=== PATIENT | male | born 1965 | race African-American/Black ===

== ENCOUNTER 2016-12-06 05:41 | Emergency (ER) | payer SELFPAY ==
[~2016-12-06] VITALS: Ht 190.5 cm; Wt 81.8 kg
[~2016-12-06 05:41] MED LIST: NO HOME MEDS
[2016-12-06 07:31] VITALS: BP 193/107
== END 2016-12-06 07:55 | disposition home or self-care (01) ==
LOC: ER 05:41
DX: B35.4 Tinea corporis (principal); I10 Essential (primary) hypertension; F17.210 Nicotine dependence, cigarettes, uncomplicated
CPT/HCPCS: 99282

== ENCOUNTER 2016-12-09 03:01 | Emergency (ER) | payer SELFPAY ==
[~2016-12-09] VITALS: Ht 190.5 cm; Wt 83.0 kg
[2016-12-09 08:43] VITALS: BP 158/91
== END 2016-12-09 08:44 | disposition home or self-care (01) ==
LOC: ER 03:01
DX: D17.1 Benign lipomatous neoplasm of skin and subcutaneous tissue of trunk (principal); I10 Essential (primary) hypertension; F17.200 Nicotine dependence, unspecified, uncomplicated
CPT/HCPCS: 71010; 99283

== ENCOUNTER 2017-01-17 03:55 | Emergency (ER) | payer SELFPAY ==
[~2017-01-17] VITALS: Ht 185.4 cm; Wt 84.0 kg
[2017-01-17 07:23] LABS: BASOPHILS % 1.3 % (0.0-2.0); EOSINOPHILS % 1.1 % (0.0-5.0); HEMATOCRIT. 39.6 % (42.0-52.0); HEMOGLOBIN. 13.4 g/dL (14.0-18.0); LYMPHOCYTES % 54.3 % (20.0-50.0); MEAN CORPUSCULAR HEMOGLOBIN 30.1 pg (28.0-32.0); MEAN CORPUSCULAR VOLUME 89.1 fL (80.0-94.0); MEAN PLATELET VOLUME 7.4 fl (7.4-10.4); MONOCYTES % 8.9 % (2.0-8.0); NEUTROPHILS % 34.4 % (40.0-76.0); PLATELET 180 x1000/uL (130-400); RED BLOOD CELL COUNT 4.44 mill/uL (4.7-6.1); RED CELL DISTRIBUTION WIDTH 13.4 % (11.6-14.6)
[2017-01-17 07:28] LABS: CHLORIDE 106 mEq/L (98-107)
[2017-01-17 07:31] LABS: CARBON DIOXIDE 29 mEq/L (21-32)
[2017-01-17 08:21] VITALS: BP 139/83
== END 2017-01-17 08:21 | disposition home or self-care (01) ==
LOC: ER 05:18
DX: R60.9 Edema, unspecified (principal); I10 Essential (primary) hypertension; F17.200 Nicotine dependence, unspecified, uncomplicated
CPT/HCPCS: 36415; 80048; 85025; 99284

== ENCOUNTER 2023-04-12 07:56 | Emergency (ER) | payer MEDICAID, OTHER ==
[~2023-04-12] VITALS: Ht 182.9 cm; Wt 81.0 kg
[~2023-04-12 07:56] MED LIST changes: +GABA-533 PO
[2023-04-12 08:02] VITALS: O2SAT 100
[2023-04-12] MEDS ORDERED: ACETAMINOPHEN 325MG TABLET PO STA (08:14)
[2023-04-12 08:33] LABS: BASOPHILS % 1.1 % (0.0-2.0); EOSINOPHILS % 1.3 % (0.0-5.0); HEMATOCRIT. 39.1 % (42.0-52.0); HEMOGLOBIN. 13.4 g/dL (14.0-18.0); LYMPHOCYTES % 49.3 % (20.0-50.0); MEAN CORPUSCULAR HEMOGLOBIN 29.3 pg (28.0-32.0); MEAN CORPUSCULAR HGB CONC 34.2 g/dL (31.0-37.0); MEAN CORPUSCULAR VOLUME 85.7 fL (80.0-94.0); MEAN PLATELET VOLUME 7.4 fl (7.4-10.4); MONOCYTES % 10.9 % (2.0-8.0); NEUTROPHILS % 37.4 % (40.0-76.0); PLATELET 218 x1000/uL (130-400); RED BLOOD CELL COUNT 4.56 mill/uL (4.7-6.1); RED CELL DISTRIBUTION WIDTH 13.3 % (11.6-14.6); WHITE BLOOD COUNT 3.5 x1000/uL (4.5-11.0)
[2023-04-12 08:41] LABS: CHLORIDE 106 mEq/L (98-107); INDEX HEMOLYSI 1 (1-3); INDEX ICTERIC 1 (1-4); INDEX LIPEMIC 1 (1-3); POTASSIUM 3.8 mEq/L (3.5-5.1); SODIUM 136 mEq/L (136-145)
[2023-04-12 08:50] LABS: ALANINE AMINOTRANSFERASE 23 IU/L (13-61); ALBUMIN 4.1 g/dL (3.4-5.0); ASPARTATE AMINOTRANSFERASE 16 IU/L (15-37); BILIRUBIN TOTAL 0.8 mg/dL (0.1-1.0); CALCIUM 9.3 mg/dL (8.5-10.1); CARBON DIOXIDE 30 mEq/L (21-32); GLUCOSE 81 mg/dL (70-105); PROTEIN TOTAL 8.2 g/dL (6.0-8.3); UREA NITROGEN BLOOD 14 mg/dL (7-21)
[2023-04-12 10:55] LABS: CLARITY URINE CLEAR (CLEAR); COLOR URINE YELLOW (YELLOW); GLUCOSE URINE NEGATIVE (NEGATIVE); KETONES URINE NEGATIVE (NEGATIVE); LEUKOCYTE ESTERASE URINE NEGATIVE (NEGATIVE); NITRITE URINE NEGATIVE (NEGATIVE); OCCULT BLOOD URINE NEGATIVE (NEGATIVE); PROTEIN URINE NEGATIVE (NEGATIVE); SPECIFIC GRAVITY URINE 1.009 (1.005-1.030); UROBILINOGEN URINE 0.2 E.U./dL (0.2-1.0)
[2023-04-12] MEDS ORDERED: ACETAMINOPHEN 325MG TABLET PO NR (15:15)
[2023-04-12] MEDS ORDERED: IOHEXOL-300 100 ML BOTTLE ONE ×2 (16:19→21:40)
[2023-04-12 17:04] VITALS: BP 138/77; PULSE 70; RESP 20; TEMP 98.9
== END 2023-04-12 17:04 | disposition home or self-care (01) ==
LOC: ER 07:56
DX: R10.31 Right lower quadrant pain (principal); M79.89 Other specified soft tissue disorders; I25.2 Old myocardial infarction; I10 Essential (primary) hypertension
CPT/HCPCS: 80053; 81003; 85025; 36415; 71045; 74177; 93970; 99285; Q9967; Z7610 ×3

== ENCOUNTER 2024-05-22 08:20 | Emergency (ER) | payer MEDICAID ==
[~2024-05-22] VITALS: Ht 188 cm; Wt 83.5 kg
[~2024-05-22 08:20] MED LIST changes: -GABA-533 PO; +GABA-534 PO
[2024-05-22 08:26] VITALS: O2SAT 100
[2024-05-22 08:33] VITALS: TEMP 98.3; O2SAT 97
[2024-05-22 09:07] VITALS: BP 167/104; PULSE 60; RESP 16
[2024-05-22] MEDS: KETOROLAC 30MG/ML VIAL IM ONE (09:07)
[2024-05-22 09:26] LABS: CLARITY URINE CLEAR (CLEAR); COLOR URINE YELLOW (YELLOW); GLUCOSE URINE NEGATIVE (NEGATIVE); KETONES URINE NEGATIVE (NEGATIVE); LEUKOCYTE ESTERASE URINE NEGATIVE (NEGATIVE); NITRITE URINE NEGATIVE (NEGATIVE); OCCULT BLOOD URINE NEGATIVE (NEGATIVE); PROTEIN URINE NEGATIVE (NEGATIVE); SPECIFIC GRAVITY URINE 1.019 (1.005-1.030)
[2024-05-22 09:33] LABS: EOSINOPHILS % 1.4 % (0.0-5.0); HEMATOCRIT. 41.2 % (42.0-52.0); HEMOGLOBIN. 13.9 g/dL (14.0-18.0); LYMPHOCYTES % 44.3 % (20.0-50.0); MEAN CORPUSCULAR HGB CONC 33.8 g/dL (31.0-37.0); MEAN CORPUSCULAR VOLUME 88.7 fL (80.0-94.0); MEAN PLATELET VOLUME 7.8 fl (7.4-10.4); MONOCYTES % 10.6 % (2.0-8.0); NEUTROPHILS % 42.7 % (40.0-76.0); PLATELET 220 x1000/uL (130-400); RED BLOOD CELL COUNT 4.64 mill/uL (4.7-6.1); RED CELL DISTRIBUTION WIDTH 13.5 % (11.6-14.6); WHITE BLOOD COUNT 3.5 x1000/uL (4.5-11.0)
[2024-05-22 09:40] LABS: CHLORIDE 105 mEq/L (98-107); POTASSIUM 3.8 mEq/L (3.5-5.1); SODIUM 139 mEq/L (136-145)
[2024-05-22 09:42] LABS: CARBON DIOXIDE 31 mEq/L (21-32)
[2024-05-22 09:43] LABS: CALCIUM 9.6 mg/dL (8.7-10.4)
[2024-05-22 09:47] LABS: CREATININE 1.2 mg/dL (0.6-1.3)
[2024-05-22 09:48] LABS: GLUCOSE 85 mg/dL (70-105); UREA NITROGEN BLOOD 15 mg/dL (9-23)
[2024-05-22 09:49] LABS: ALANINE AMINOTRANSFERASE 15 IU/L (10-49); ALBUMIN 4.6 g/dL (3.2-4.8); ASPARTATE AMINOTRANSFERASE 20 IU/L (<34)
[2024-05-22 09:50] LABS: BILIRUBIN DIRECT 0.2 mg/dL (<=3.0); BILIRUBIN TOTAL 0.7 mg/dL (0.1-1.0); PROTEIN TOTAL 7.7 g/dL (6.0-8.3)
[2024-05-22] MEDS ORDERED: POLY17PO3 MT (10:57)
[2024-05-22] MEDS ORDERED: IBUP-2029 MT (11:10)
== END 2024-05-22 11:27 | disposition home or self-care (01) ==
LOC: ER 08:20
DX: K40.90 Unilateral inguinal hernia, without obstruction or gangrene, not specified as recurrent (principal); K59.00 Constipation, unspecified; I10 Essential (primary) hypertension; Z98.890 Other specified postprocedural states; Z79.899 Other long term (current) drug therapy
CPT/HCPCS: 99285; 74176; 80076; 80048; 81003; 83690; 85025; 36415; 96372; J1885

== ENCOUNTER 2024-07-17 08:59 | Emergency (ER) | payer MEDICAID, OTHER ==
[~2024-07-17] VITALS: Ht 185.4 cm; Wt 83.0 kg
[~2024-07-17 08:59] MED LIST changes: +IBUP-2029 MT; +POLY17PO3 MT
[2024-07-17 09:02] VITALS: BP 174/105; RESP 16; TEMP 98.6; O2SAT 100
[2024-07-17 09:03] VITALS: PULSE 77; O2SAT 100
[2024-07-17 10:30] LABS: BASOPHILS % 0.8 % (0.0-2.0); EOSINOPHILS % 1.2 % (0.0-5.0); HEMATOCRIT. 46.1 % (42.0-52.0); HEMOGLOBIN. 15.1 g/dL (14.0-18.0); LYMPHOCYTES % 48.8 % (20.0-50.0); MEAN CORPUSCULAR HEMOGLOBIN 29.7 pg (28.0-32.0); MEAN CORPUSCULAR HGB CONC 32.7 g/dL (31.0-37.0); MEAN CORPUSCULAR VOLUME 90.9 fL (80.0-94.0); MEAN PLATELET VOLUME 8.2 fl (7.4-10.4); MONOCYTES % 11.6 % (2.0-8.0); NEUTROPHILS % 37.6 % (40.0-76.0); PLATELET 203 x1000/uL (130-400); RED BLOOD CELL COUNT 5.08 mill/uL (4.7-6.1); RED CELL DISTRIBUTION WIDTH 13.5 % (11.6-14.6); WHITE BLOOD COUNT 3.9 x1000/uL (4.5-11.0)
[2024-07-17 10:41] LABS: CHLORIDE 105 mEq/L (98-107); SODIUM 139 mEq/L (136-145)
[2024-07-17 10:42] LABS: CARBON DIOXIDE 26 mEq/L (21-32)
[2024-07-17 10:43] LABS: CALCIUM 9.6 mg/dL (8.7-10.4)
[2024-07-17 10:47] LABS: CREATININE 1.1 mg/dL (0.6-1.3); GLUCOSE 67 mg/dL (70-105)
[2024-07-17 10:48] LABS: UREA NITROGEN BLOOD 13 mg/dL (9-23)
[2024-07-17 10:49] LABS: ALANINE AMINOTRANSFERASE 22 IU/L (10-49); ALBUMIN 4.7 g/dL (3.2-4.8); ASPARTATE AMINOTRANSFERASE 26 IU/L (<34)
[2024-07-17 10:50] LABS: BILIRUBIN TOTAL 0.9 mg/dL (0.1-1.0); PROTEIN TOTAL 7.8 g/dL (6.0-8.3)
[2024-07-17] MEDS ORDERED: OCUFLX EACHEYE (12:12)
== END 2024-07-17 12:40 | disposition home or self-care (01) ==
LOC: ER 08:59
DX: H10.9 Unspecified conjunctivitis (principal); R20.8 Other disturbances of skin sensation; I10 Essential (primary) hypertension; I51.9 Heart disease, unspecified
CPT/HCPCS: 80053; 85025; 36415; 99283; Z7610

== ENCOUNTER 2024-09-13 08:08 | Emergency (ER) | payer MEDICAID ==
[~2024-09-13] VITALS: Ht 182.9 cm; Wt 85.0 kg
[~2024-09-13 08:08] MED LIST changes: +OCUFLX EACHEYE
[2024-09-13 08:28] VITALS: O2SAT 100
[2024-09-13 09:11] LABS: BASOPHILS % 2.4 % (0.0-2.0); HEMATOCRIT. 39.8 % (42.0-52.0); HEMOGLOBIN. 13.4 g/dL (14.0-18.0); LYMPHOCYTES % 44.3 % (20.0-50.0); MEAN CORPUSCULAR HEMOGLOBIN 30.1 pg (28.0-32.0); MEAN CORPUSCULAR HGB CONC 33.6 g/dL (31.0-37.0); MEAN CORPUSCULAR VOLUME 89.4 fL (80.0-94.0); MEAN PLATELET VOLUME 7.8 fl (7.4-10.4); MONOCYTES % 11.5 % (2.0-8.0); NEUTROPHILS % 40.8 % (40.0-76.0); PLATELET 214 x1000/uL (130-400); RED BLOOD CELL COUNT 4.46 mill/uL (4.7-6.1); RED CELL DISTRIBUTION WIDTH 13.5 % (11.6-14.6); WHITE BLOOD COUNT 3.2 x1000/uL (4.5-11.0)
[2024-09-13 09:13] LABS: CHLORIDE 106 mEq/L (98-107); POTASSIUM 4.7 mEq/L (3.5-5.1); SODIUM 139 mEq/L (136-145)
[2024-09-13 09:14] LABS: CARBON DIOXIDE 27 mEq/L (21-32)
[2024-09-13 09:15] LABS: CALCIUM 9.6 mg/dL (8.7-10.4)
[2024-09-13 09:19] LABS: CREATININE 1.2 mg/dL (0.6-1.3); GLUCOSE 94 mg/dL (70-105)
[2024-09-13 09:20] LABS: UREA NITROGEN BLOOD 12 mg/dL (9-23)
[2024-09-13 09:21] LABS: ALANINE AMINOTRANSFERASE 17 IU/L (10-49); ALBUMIN 4.4 g/dL (3.2-4.8); ASPARTATE AMINOTRANSFERASE 19 IU/L (<34)
[2024-09-13 09:22] LABS: BILIRUBIN DIRECT 0.2 mg/dL (<=3.0); BILIRUBIN TOTAL 0.7 mg/dL (0.1-1.0); PROTEIN TOTAL 7.5 g/dL (6.0-8.3)
[2024-09-13] MEDS ORDERED: MAGNESIUM/ALUMINUM HYDROXIDE/SIMETHICONE 30ML UDC PO STA (10:49)
[2024-09-13] MEDS ORDERED: FAMOTIDINE 20MG TABLET PO ONE (11:00)
[2024-09-13 11:09] LABS: CLARITY URINE CLEAR (CLEAR); COLOR URINE YELLOW (YELLOW); GLUCOSE URINE NEGATIVE (NEGATIVE); KETONES URINE NEGATIVE (NEGATIVE); LEUKOCYTE ESTERASE URINE NEGATIVE (NEGATIVE); NITRITE URINE NEGATIVE (NEGATIVE); OCCULT BLOOD URINE NEGATIVE (NEGATIVE); PH URINE 7.5 (4.5-8.0); PROTEIN URINE NEGATIVE (NEGATIVE)
[2024-09-13] MEDS ORDERED: FAMO-135 MT (12:15)
[2024-09-13] MEDS ORDERED: MAG355OR21 MT (12:15)
[2024-09-13] MEDS: MAGNESIUM/ALUMINUM HYDROXIDE/SIMETHICONE 30ML UDC PO NR (12:46)
[2024-09-13] MEDS: FAMOTIDINE 20MG TABLET PO NR (12:46)
[2024-09-13 14:30] VITALS: BP 144/84; PULSE 64; RESP 18; TEMP 36.7; O2SAT 100
[2024-09-13] MEDS: VISCOUS LIDOCAINE 2% 15 ML UDC MM SCH (14:30)
== END 2024-09-13 14:30 | disposition home or self-care (01) ==
LOC: ER 08:08
DX: R10.33 Periumbilical pain (principal); I10 Essential (primary) hypertension; I25.10 Atherosclerotic heart disease of native coronary artery without angina pectoris; Z95.5 Presence of coronary angioplasty implant and graft
CPT/HCPCS: 36415; 74176; 80048; 80076; 81003; 85025; 99284